=== PATIENT | female | born 1955 | race Asian ===

== ENCOUNTER 2016-08-25 08:08 | Day surgery (SDC) | payer OTHER ==
[2016-08-24 15:10] VITALS: BMI 21.9
[2016-08-25] MEDS ORDERED: PROPOFOL 20 ML ONE ×2 (08:10)
[2016-08-25] MEDS ORDERED: LIDOCAINE HCL/PF 2% SDV 5ML VIAL ONE (08:11)
[2016-08-25 08:33] VITALS: TEMP 98.2
[2016-08-25 10:20] VITALS: BP 110/61; PULSE 66
== END 2016-08-25 10:25 | disposition home or self-care (01) ==
LOC: FASU-ENDO 08:08
PROVIDERS: ATTEND Internal Medicine Gastroenterology
PROC: 0DJD8ZZ Inspection of Lower Intestinal Tract, Via Natural or Artificial Opening Endoscopic (ICD-10-PCS; principal; 2016-08-25 09:19)
DX: Z12.11 Encounter for screening for malignant neoplasm of colon (principal); K57.30 Diverticulosis of large intestine without perforation or abscess without bleeding; K64.8 Other hemorrhoids

== ENCOUNTER 2021-11-26 07:32 | Day surgery (SDC) | payer OTHER ==
[2021-11-24 11:27] VITALS: BMI 22.8
[2021-11-26] MEDS ORDERED: PROPOFOL 120 ML ONE (07:49)
[2021-11-26 08:05] VITALS: RESP 18; TEMP 98
[2021-11-26 09:05] VITALS: BP 114/64; PULSE 84
== END 2021-11-26 09:15 | disposition home or self-care (01) ==
LOC: FASU-ENDO 07:32
PROVIDERS: ATTEND Internal Medicine Gastroenterology
PROC: 0DJD8ZZ Inspection of Lower Intestinal Tract, Via Natural or Artificial Opening Endoscopic (ICD-10-PCS; principal; 2021-11-26 08:23)
DX: Z12.11 Encounter for screening for malignant neoplasm of colon (principal); Z83.71 Family history of colonic polyps; K57.30 Diverticulosis of large intestine without perforation or abscess without bleeding; K64.0 First degree hemorrhoids